=== PATIENT | male | born 1990 | race Caucasian/White ===

== ENCOUNTER → 2018-09-09 10:57 | Emergency (ER) | payer OTHER ==
[~2018-09-09 10:57] MED LIST: Iohexol 350* (CONTRAST) 500 ML MDV IV ONE; LORazepam TAB(*) 1 MG PO ONE; NS 0.9% 1000 ML* 1,000 ML IV ONE
--- NOTE | 2018-09-09 11:26 | ED ---
Abdominal Pain/Male - HPI Summary HPI Summary: This patient is a 27 year old M presenting to [facility] c/o a sharp but not intense pain near his umbilicus that is waxing and waning since yesterday that was worse today. He states he has been thinking about his sx and is concerned there may be something wrong, and he wants to r/o any serious illness. He states the sx may be related to his anxiety as he has felt overwhelmed, his HR spiked, his BP spiked and he welt rapid palpitations, as reported by him. The patient rates the pain 2/10 in severity. Patient reports light headedness and nausea. Patient denies urinary sx, melena, and bowel sx. - History of Current Complaint Chief Complaint: EDAbdPain Stated Complaint: ABD PAIN Time Seen by Provider: 09/09/18 11:07 Hx Obtained From: Patient Onset/Duration: Still Present Timing: Constant Severity Initially: Moderate Severity Currently: Mild Pain Intensity: 2 Pain Scale Used: 0-10 Numeric Location: Umbilical Radiates: No Associated Signs And Symptoms: Positive: Nausea. Negative: Fever, Urinary Symptoms - Allergies/Home Medications Allergies/Adverse Reactions: Allergies Allergy/AdvReac Type Severity Reaction Status Date / Time No Known Allergies Allergy Verified 09/09/18 11:01 Home Medications: Home Medications Lisinopril 40 mg PO DAILY 09/09/18 [History Confirmed 09/09/18] PMH/Surg Hx/FS Hx/Imm Hx Endocrine/Hematology History: Denies: Hx Unexplained Bleeding, Autoimmune Disease Cardiovascular History: Denies: Hx Cardiomegaly Respiratory History: Denies: Hx Seasonal Allergies Sensory History: Reports: Hx Contacts or Glasses Opthamlomology History: Reports: Hx Contacts or Glasses EENT History: Denies: Hx Deafness, Hx Hearing Problem Neurological History: Denies: Hx Developmental Delay Psychiatric History: Reports: Hx Anxiety Infectious Disease History: No Infectious Disease History: Denies: Traveled Outside the [place] in Last 30 Days - Family History Known Family History: Positive: Hypertension - Social History Alcohol Use: Occasionally Alcohol Amount: monthly Substance Use Type: Reports: None Smoking Status (MU): Never Smoked Tobacco Review of Systems Gastrointestinal: Negative - melena Positive: Abdominal Pain, Nausea Positive: no symptoms reported Neurological: Other - lightheadedness Positive: Anxious All Other Systems Reviewed And Are Negative: Yes Physical Exam - Summary Physical Exam Summary: Appearance: The patient is well-nourished in no acute distress and in no acute pain. Skin: The skin is warm and dry and skin color reflects adequate perfusion. HEENT: The head is normocephalic and atraumatic. The pupils are equal and reactive. The conjunctivae are clear and without drainage. Nares are patent and without drainage. Mouth reveals moist mucous membranes and the throat is without erythema and exudate. The external ears are intact. The ear canals are patent and without drainage. The tympanic membranes are intact. Neck: The neck is supple with full range of motion and non-tender. There are no carotid bruits. There is no neck vein distension. Respiratory: Chest is non-tender. Lungs are clear to auscultation and breath sounds are symmetrical and equal. Cardiovascular: tachycardia but regular. There is no murmur or rub auscultated. There is no peripheral edema and pulses are symmetrical and equal. Abdomen: The abdomen is soft and non-tender. There are normal bowel sounds heard in all four quadrants and there is no organomegaly palpated. Musculoskeletal: There is no back tenderness noted. Extremities are non-tender with full range of motion. There is good capillary refill. There is no peripheral edema or calf tenderness elicited. Neurological: Patient is alert and oriented to person, place and time. The patient has symmetrical motor strength in all four extremities. Cranial nerves are grossly intact. Deep tendon reflexes are symmetrical and equal in all four extremities. Psychiatric: The patient appears anxious Triage Information Reviewed: Yes Vital Signs On Initial Exam: Initial Vitals Temp Pulse Resp BP Pulse Ox 98.8 F 125 18 142/91 100 09/09/18 10:58 09/09/18 10:58 09/09/18 10:58 09/09/18 10:58 09/09/18 10:58 Vital Signs Reviewed: Yes Diagnostics - Vital Signs Vital Signs Temp Pulse Resp BP Pulse Ox 09/09/18 10:58 98.8 F 125 18 142/91 100 - Laboratory Result Diagrams: 09/09/18 11:48 09/09/18 11:48 Lab Statement: Any lab studies that have been ordered have been reviewed, and results considered in the medical decision making process. - CT CTA ABD/Pelvis CT Interpretation Completed By: Radiologist Summary of CT Findings: 1. NO EVIDENCE FOR AORTIC DISSECTION OR ACUTE FINDING. 2. THE PULMONARY ARTERIES ARE SUBOPTIMALLY OPACIFIED TO EVALUATE FOR PULMONARY EMBOLISM. 3. HEPATIC STEATOSIS. ED physician has reviewed this radiology report. - EKG 1518 Cardiac Rate: Tachycardia EKG Rhythm: Sinus Tachycardia - at 119 BPM Summary of EKG Findings: Normal sinus rhythm, normal ST, no ectopy, no STEMI Re-Evaluation - Re-Evaluation First Eval Re-Evaluation Time: 15:04 Change: Unchanged Comment: The patient's HR is still elevated EKG will be ordered. Abdominal Pain Fem Course/Dx - Course Course Of Treatment: Mr. Abbott presented complaining of sharp epigastric pain was mild. At times he felt fluttery. He denied any shortness of breath or chest pain. He has no risk factors for PE. He was only mildly tender in the epigastrium but was tachycardic on arrival. He was given a liter of fluids which helped his tachycardia only mildly. His labs were unremarkable and a CTA of his chest abdomen pelvis was unremarkable. He felt that some of the symptoms could be attributed to anxiety and was given Ativan here. This did help his tachycardia some but he remained mildly tachycardic. I do not have a satisfactory explanation for his tachycardia although it may be anxiety. Nothing dangerous seems to be happening and I recommended follow-up with his PCP - Diagnoses Provider Diagnoses: Abdominal pain Discharge - Sign-Out/Discharge Documenting (check all that apply): Patient Departure - Discharge Plan Condition: Stable Disposition: HOME Patient Education Materials: Acute Abdominal Pain (ED) Referrals: Jayson Waters MD [Primary Care Provider] - 2 Days Additional Instructions: RETURN TO THE EMERGENCY DEPARTMENT FOR CHANGING OR WORSENING SYMPTOMS - Billing Disposition and Condition Condition: STABLE Disposition: Home - Attestation Statements Document Initiated by Jai: Yes Documenting Scribe: Efren Hubbard Provider For Whom Jai is Documenting (Include Credential): Hieu Veliz MD Scribe Attestation: Efren Veras scribed for Hieu Veliz MD on 09/09/18 at 2009. Scribe Documentation Reviewed: Yes Provider Attestation: The documentation as recorded by the Efren gonzalez accurately reflects the service I personally performed and the decisions made by me, Hieu Veliz MD Status of Scribe Document: Viewed
[2018-09-09 12:10] LABS: ABS Basophils 0 10^3/ul (0-0.2); ABS Eosinophils 0 10^3/ul (0-0.6); ABS Monocytes 0.7 10^3/ul (0-0.8); ABS Neutrophils 11.4 10^3/ul (1.5-7.7); ABS Nucleated RBC 0 10^3/ul; Eosinophil % 0.1 %; Hematocrit 41 % (42-52); Lymphocyte % 7.8 %; Mean Corpuscular HGB Conc 35 g/dl (31-36); Mean Corpuscular Hemoglobin 30 pg (27-31); Mean Corpuscular Volume 86 fL (80-94); Mean Platelet Volume 7.5 fL (7.4-10.4); Nucleated Red Blood Cells % 0; Platelet Count 261 10^3/ul (150-450); Red Blood Count 4.73 10^6/ul (4.00-5.40); Red Cell Distribution Width 13 % (10.5-15); White Blood Count 13.1 10^3/ul (3.5-10.8)
[2018-09-09 12:37] LABS: Albumin 4.9 g/dL (3.2-5.2); BUN/Creatinine Ratio 15.6 (8-20); C Reactive Protein 2.4 mg/L (<8.01); Calcium 10.1 mg/dL (8.6-10.3); EGFR Non-African American 66.9 (>60); Globulin 2.5 g/dL (2-4); Potassium 3.9 mmol/L (3.5-5.0); Total Bilirubin 0.7 mg/dL (0.2-1.0); Total Protein 7.4 g/dL (6.4-8.9)
[2018-09-09 13:26] LABS: Urine Appearance Clear; Urine Bacteria Absent (Absent); Urine Bilirubin Negative (Negative); Urine Blood 1+ (Negative); Urine Color Straw; Urine Glucose Negative (Negative); Urine Ketones Negative (Negative); Urine Nitrite Negative (Negative); Urine Protein Negative (Negative); Urine Red Blood Cell Absent (Absent); Urine Specific Gravity 1.004 (1.010-1.030); Urine Urobilinogen Negative (Negative); Urine White Blood Cell Absent (Absent)
[2018-09-09 17:33] VITALS: BP 122/79
== END | disposition home or self-care (01) ==
LOC: ED 10:57
DX: R10.9 Unspecified abdominal pain (principal); R11.0 Nausea; F41.9 Anxiety disorder, unspecified
CPT/HCPCS: 36415; 71275; 74174; 80053; 81003; 81015; 83605; 83690; 84484; 85025; 86140; 93005; 99282; A9270-GY; Q9967